=== PATIENT | female | born 1995 | race Caucasian/White ===

== ENCOUNTER 2017-10-29 06:00 | Inpatient (IN) ==
[2017-10-29] MEDS ORDERED: Naloxone 0.4 MG/ML INJ IVP PRN (06:32)
[2017-10-29] MEDS ORDERED: Metoclopramide 10 MG/2 ML VIAL IVP PRN (06:32)
[2017-10-29] MEDS ORDERED: Famotidine 20 MG/2 ML VIAL IVP PRN (06:32)
[2017-10-29] MEDS ORDERED: Ringers Solution, Lactated 1,000 ML IVC SCH (06:45)
--- NOTE | 2017-10-29 07:25 | OB/GYN History & Physical ---
Date of Encounter: 10/29/17 Time of Encounter: 07:22 Assessment and Plan (1) 40 weeks gestation of Current visit: Yes Status: Acute Admit for IOL. Plan for cytotec PO. Pt is undecided if she wants an epidural. Anticipate . (2) Gestational diabetes Current visit: Yes Status: Acute Qualifiers: Gestational diabetes mellitus control: diet-controlled Trimester: third trimester Qualified Code(s): O24.410 - Gestational diabetes mellitus in , diet controlled (3) Obesity affecting in third trimester Current visit: Yes Status: Acute (4) History of marijuana use Current visit: Yes Status: Acute History of Present Illness Chief complaint: IOL, GDM HPI: Ms. Mehta is a 22 year old female presenting at 40w1d for IOL due to GDM at 40 weeks gestation. She denies complaints today. Good FM. This is complicated by GDMA1, late care, history of marijuana use, and obesity. Blood type A positive Rubella immune Serologies negative GBS negative Past Med Surg Social Fam HX - Past Medical History Medical history: no medical history Psychiatric history: no psych history - Social History Smoking Status: Never smoker Smokeless Tobacco Status: No Alcohol use: none Drug use: marijuana - Family History Mother Hx Family Endocrine Disorder: Yes (Diabetic) Obstetrical History - Pregnancies : 1 Para: 0 Medications and Allergies Vit/Iron Fumarate/FA [ Tablet] 1 each PO DAILY 10/29/17 [ History] 3 Allergy/AdvReac Type Severity Reaction Status Date / Time No Known Allergies Allergy Verified 10/29/17 06:43 Review of System OB All systems PM: reviewed and no additional remarkable complaints except as stated Exam - Vital Signs Vital signs: Initial Vital Signs Temp Pulse Resp BP 98.2 F 102 18 138/80 10/29/17 06:55 10/29/17 06:55 10/29/17 06:55 10/29/17 06:55 - Constitutional Constitutional: well developed, well nourished, no acute distress, obese - HEENT HEENT: Mucus Membranes Moist - Lungs Respiratory exam: CTAB - Cardiovascular Cardiovascular exam: RRR - Abdomen Abdomen: Present: gravid, non tender - Extremities Extremities exam: normal inspection - Vulva Vulva: bilateral: normal - Cervix Dilation: 3 (in office) - Anus/Rectum Anus/Rectum: Present: normal perianal skin Results All other labs normal. - VTE Reasons for not Prescribing Prophylaxis: Treatment not Indicated - Low risk for VTE
[2017-10-29] MEDS: miSOPROStol 25 MCG TABLET PO PRN ×2 (07:57→12:46)
[2017-10-29 07:58] LABS: Amphetamine Screen,Urine Negative ng/mL (Cutoff=1000); Barbiturate Screen,Urine Negative ng/mL (Cutoff=200); Benzodiazepines Screen,Urine Negative ng/mL (Cutoff=200); Cannabinoid Screen,Urine Negative ng/mL (Cutoff = 50); Cocaine Screen,Urine Negative ng/mL (Cutoff= 300); Opiate Screen,Urine Negative ng/mL (Cutoff=300); Phencyclidine Screen,Urine Negative ng/mL (Cutoff=25)
[2017-10-29 07:59] LABS: Basophils # 0.1 K/mcL (0.0-0.2); Basophils % 0.4 %; Eosinophils # 0.1 K/mcL (0.0-0.6); Eosinophils % 0.7 %; Hematocrit 34.5 % (35.3-44.9); Hemoglobin 11.3 g/dL (11.5-15.4); Immature Granulocytes % 1.3 % (0-4); Lymphocytes # 1.6 K/mcL (0.6-4.6); Lymphocytes % 13.3 %; Mean Corpuscular HGB Conc 32.8 g/dL (31.6-35.5); Mean Corpuscular Hemoglobin 27.2 pg (28.0-33.3); Mean Corpuscular Volume 82.9 fL (83.0-100.0); Mean Platelet Volume 10.6 fL (9.4-12.4); Monocytes # 0.9 K/mcL (0.0-1.3); Monocytes % 7.7 %; Neutrophils # 9.3 K/mcL (1.6-8.9); Platelet Count 293 K/mcL (140-400); Red Blood Count 4.16 M/mcL (3.82-4.97); Red Cell Distribution Width 15.1 % (11.5-14.5); Segmented Neutrophils % 76.6 %
--- NOTE | 2017-10-29 13:08 | OB Labor Progress Note ---
Date of Encounter: 10/29/17 Time of Encounter: 13:02 Labor Progress Note - Subjective Subjective: Resting comfortably in bed; feeling occasional contraction - Vital Signs Vital Signs: VSS - Cervix Cervix: 2-3/80/-1 posterior soft - Heart Tones Heart Tones: 135 category I - [place]: irregular contractions - Interventions Interventions: Intracervical ricks catheter placed without difficulty; patient and fetus tolerated well. - Plan Plan: Continue routine labor management GBS negative Consider AROM and pitocin for labor augmentation Patient may have nubain/epidural upon request for pain control Anticipate vaginal delivery POC per consult with Dr Shore
[2017-10-29] MEDS: *HR* Nalbuphine 20 MG/ML AMPUL IVP PRN ×2 (13:47→18:13)
--- NOTE | 2017-10-29 16:52 | OB Labor Progress Note ---
Date of Encounter: 10/29/17 Time of Encounter: 16:30 Labor Progress Note - Subjective Subjective: Patient resting comfortably in bed - Vital Signs Vital Signs: VSS - Cervix Cervix: 4-5/80/-1 - Heart Tones Heart Tones: 130 category I - [place]: Contractions every 4-6 minutes - Interventions Interventions: AROM for large amount of clear fluid, iupc and fse. Patient and fetus tolerated well - Plan Plan: Continue routine labor management GBS negative pain is well controlled; may have nubain/epidural upon request Start pitocin and titrate for adequate labor Anticipate vaginal delivery POC per consult with Dr Shore.
[2017-10-29] MEDS ORDERED: Oxytocin 20 units/ LR 1000 mL 20 UNIT/1,000 ML BAG IVC SCH (17:00)
[2017-10-29] MEDS ORDERED: Epidural Premix (fent/bupiv) 110 ML EP ONE (19:29)
[2017-10-29] MEDS ORDERED: Epidural Premix (fent/bupiv) 110 ML EP SCH (19:30)
[2017-10-29] MEDS ORDERED: Ringers Solution, Lactated 1,000 ML ONE (20:34)
--- NOTE | 2017-10-29 21:01 | Anesthesia Evaluation PreOp ---
Date of Encounter: 10/29/17 Time of Encounter: 19:30 - Past History Planned Operation: cynthia Cardiac History: Denies any Significant Hx Pulmonary History: Denies Any Significant HX PATIENT REGISTRATION SPECIALIST History: Denies Any Significant HX Other Medical History: Denies Any Significant HX Anesthesia History: No Prior Anesthetic Complications : Yes Test: Positive Alcohol Use: none Drug use: none, marijuana Medications and Allergies Vit/Iron Fumarate/FA [ Tablet] 1 each PO DAILY 10/29/17 [ History] 3 Allergy/AdvReac Type Severity Reaction Status Date / Time No Known Allergies Allergy Verified 10/29/17 06:43 - Meds/Allergy Pre-op Review Medications Reviewed: Yes Allergies Reviewed: Yes Beta Blockers on Current Med List: No Anesthesia Results - Labs 10/29/17 07:35 Anesthesia Exam Height: 63.5 Weight: 106 NPO (# of Hours): mn Pain Scale: 8 - HEENT Pupil (Motor): Pupils equal Mallampati: II Teeth: Normal Oral Opening: Greater than 3 - PATIENT REGISTRATION SPECIALIST LOC: Oriented PATIENT REGISTRATION SPECIALIST Motor: Normal RUE, Normal LUE, Normal RLE, Normal LLE, Normal Face PATIENT REGISTRATION SPECIALIST Sensory: Normal: RUE, LUE, RLE, LLE, Face - Cardiac Rhythm: Regular Murmur: None JVD: No Carotid Bruit: No - Pulmonary Breath Sounds: bilateral Clear Respiratory Effort: Symmetrical Anesthesia Assess/Plan ASA Score: 2 Modified Annemarie Scale for Level of Consciousness: Cooperative, oriented, and tranquil Anesthetic Plan: Regional Autologous Blood: No Monitoring Plan: Standard Monitors
--- NOTE | 2017-10-29 21:03 | Anesthesia Procedures ---
Date of Encounter: 10/29/17 Time of Encounter: 19:30 Procedures: Anesthesia - Epidural/Spinal Patient ID/Chart reviewed: Yes Patient examined: Yes OB Eval: Gestational age: 40.1 OB Eval: : 1 OB Eval: Hx Para: 0 OB Eval: Dilated at (cm): 6 OB Eval: Contractions: Non-stressed pattern Consent Obtained: Yes Supplemental Oxygen: None/Room Air Site Prep: Aseptic Technique, Sterile prep and drape, Povidone-Iodine 1% Patient position: upright Amount of Local Anesthetic used: 3 Touhy Needle Gauge: 18 Touhy Needle Depth (cm): 6 Catheter Depth at Skin (cm): 9 Test Dose (1.5% Lido + Epi): Volume given (mls): 3 Test Dose Result: Negative Loading Dose Administered: Thru Catheter Infusion Rate (mls/hr): [address]: Tegaderm, Tape Interspace Used: L4-L5 Loss of Resistance (AKUA): Yes Blood: No CSF: No Paresthesia: No Vitals + FHT's: stable throughout see nursing notes
[2017-10-30] MEDS ORDERED: 0.9 % Sodium Chloride 1,000 ML ONE (00:47)
[2017-10-30] MEDS ORDERED: Ondansetron 4 MG/2 ML VIAL IVP PRN (02:13)
[2017-10-30] MEDS ORDERED: Epidural Premix (fent/bupiv) 110 ML EP ONE ×2 (02:22→07:35)
[2017-10-30] MEDS ORDERED: Ondansetron 4 MG/2 ML VIAL ONE (02:26)
[2017-10-30] MEDS ORDERED: ROPIVACAINE HCL/PF 0.5% 30 ML VIAL ONE (05:11)
--- NOTE | 2017-10-30 11:51 | OB/GYN Procedure Note ---
Delivery - Delivery Date: 10/30/17 Provider: Santiago Shore Intrapartum events: none Delivery induction: ricks, misoprostol Delivery augmentation: rupture of membranes, pitocin Delivery monitor: internal FHT, internal uterine Anesthesia: epidural Estimated Blood Loss: 200 - (s) A Delivery Date: 10/30/17 Delivery Time: 11:29 Presentation: vertex Position: OA Route of delivery: Gender: Male Viability: Viable Pounds: 6 Ounces: 13 at 1 minute: 2 at 5 mins: 8 Shoulder Dystocia: not encountered Specimens collected: cord blood Placenta: spontaneous - Repair Episiotomy: none Laceration Description: None - Complications Delivery complications: none - Disposition Mom disposition: stable in LDR disposition: taken to nursery - Comments Comments: Patient progressed to complete and on the perineum. She delivered a live male infant weighing 6 lbs. 13 oz. Anesthesia was epidural. Apgars were 2 and 8. Delivery was 1129. Estimated blood loss was 200 mL. Placenta delivered spontaneously intact.
[2017-10-30] MEDS ORDERED: Oxytocin 20 units/ LR 1000 mL 20 UNIT/1,000 ML BAG IVC SCH (14:11)
[2017-10-30] MEDS ORDERED: Measles/Mumps/Rubella Vacc 0.5 ML VIAL SQ PRN (14:11)
[2017-10-30] MEDS ORDERED: Ibuprofen 600 MG TABLET PO PRN (14:11)
[2017-10-30] MEDS ORDERED: Sennosides 8.6 MG TABLET PO PRN (14:11)
[2017-10-30] MEDS ORDERED: Acetaminophen 325 MG TABLET PO PRN (14:11)
[2017-10-31 07:56] VITALS: BP 122/71
[2017-10-31 08:26] LABS: Basophils % 0.3 %; Eosinophils # 0.2 K/mcL (0.0-0.6); Eosinophils % 1.3 %; Hematocrit 29.6 % (35.3-44.9); Lymphocytes # 3.2 K/mcL (0.6-4.6); Lymphocytes % 20.5 %; Mean Corpuscular HGB Conc 32.4 g/dL (31.6-35.5); Mean Corpuscular Hemoglobin 27.3 pg (28.0-33.3); Mean Corpuscular Volume 84.1 fL (83.0-100.0); Mean Platelet Volume 10.5 fL (9.4-12.4); Monocytes # 1.5 K/mcL (0.0-1.3); Monocytes % 9.8 %; Neutrophils # 10.5 K/mcL (1.6-8.9); Platelet Count 256 K/mcL (140-400); Red Blood Count 3.52 M/mcL (3.82-4.97); Red Cell Distribution Width 15.2 % (11.5-14.5); Segmented Neutrophils % 67.1 %
--- NOTE | 2017-10-31 08:40 | Discharge Summary ---
Date of Encounter: 10/31/17 Time of Encounter: 08:38 - Discharge Diagnosis (1) Vaginal delivery Priority: Primary Status: Acute Comments: Pt states feels well, pain well managed on po pain medication, tolerates diet, voids without difficulty. Desires discharge (2) 40 weeks gestation of Priority: Primary Status: Acute (3) Gestational diabetes Priority: Primary Status: Acute Qualifiers: Gestational diabetes mellitus control: diet-controlled Trimester: third trimester Qualified Code(s): O24.410 - Gestational diabetes mellitus in , diet controlled - Discharge Medications Prescriptions: Ibuprofen [Motrin] 600 mg PO Q6HR PRN #60 tablet PRN Reason: Cramping Docusate [Colace] 100 mg PO BID #60 capsule Home Medications: Vit/Iron Fumarate/FA [ Tablet] 1 each PO DAILY 10/29/17 [ History] Acetaminophen [Tylenol] 650 mg PO Q6HR PRN tablet 10/31/17 [Rx] Docusate [Colace] 100 mg PO BID #60 capsule 10/31/17 [Rx] Ibuprofen [Motrin] 600 mg PO Q6HR PRN #60 tablet 10/31/17 [Rx] Vit/FA 1 each PO DAILY tablet 10/31/17 [Rx] Allergies/Adverse Reactions: 3 Allergy/AdvReac Type Severity Reaction Status Date / Time No Known Allergies Allergy Verified 10/29/17 06:43 Data Procedures and tests throughout hospitalization: Laboratory Tests 10/29/17 10/29/17 10/31/17 07:35 07:35 04:08 WBC 12.1 H RBC 4.16 Hgb 11.3 L Hct 34.5 L MCV 82.9 L MCH 27.2 L MCHC 32.8 RDW 15.1 H Plt Count 293 MPV 10.6 Immature Gran % 1.3 Seg Neutrophils % 76.6 Lymphocytes % 13.3 Monocytes % 7.7 Eosinophils % 0.7 Basophils % 0.4 Neutrophils # 9.3 H Lymphocytes # 1.6 Monocytes # 0.9 Eosinophils # 0.1 Basophils # 0.1 POC Glucose 87 Urine Opiates Screen Negative Ur Barbiturates Screen Negative Ur Phencyclidine Scrn Negative Ur Amphetamines Screen Negative U Benzodiazepines Scrn Negative Urine Cocaine Screen Negative U Marijuana (THC) Screen Negative Labs on day of discharge: Labs from last 24 hours 10/31/17 04:08 POC Glucose 87 Date of admission: 10/29/17 06:29 Primary care physician: Nallely Tabor CNP Consults: 10/30/17 14:11 Consult to [employer] Pain[employer] [CONS] Routine Comment: Vaginal delivery, consult needed Discharging clinician: Obdulia Batres Anticipated date of discharge: 10/31/17 - Patient Status Disposition: Home, Self-Care Condition: Good Functional capacity at discharge: independent ambulation Overall status at discharge: patient is back to baseline - Discharge Instructions Instructions: Diabetes Mellitus Type 2 in Adults (DC) Follow Up With: Nallely Tabor CNP [Primary Care Provider] - - Diet and Activity Activity: resume usual activities as tolerated Diet: regular diet Hospital Course Reason for admission: active labor Delivery: Episiotomy: none Laceration: none Other procedures: none complications: none Discharge diagnosis: IUP at term delivered baby: male Hospital course: Delivery - Delivery Date: 10/30/17 Provider: Santiago Shore Intrapartum events: none Delivery induction: ricks, misoprostol Delivery augmentation: rupture of membranes, pitocin Delivery monitor: internal FHT, internal uterine Anesthesia: epidural Estimated Blood Loss: 200 - Infant (s) A Delivery Date: 10/30/17 Delivery Time: 11:29 Presentation: vertex Position: OA Route of delivery: Gender: Male Viability: Viable Pounds: 6 Ounces: 13 at 1 minute: 2 at 5 mins: 8 Shoulder Dystocia: not encountered Specimens collected: cord blood Placenta: spontaneous - Repair Episiotomy: none Laceration Description: None - Complications Delivery complications: none - Disposition Mom disposition: stable in PP and appropriate for discharge. Time Attestation: Total time spent providing and/or coordinating discharge services: Time Spent: Less than 30 minutes Exam - Constitutional Vitals: Temp Pulse Resp BP Pulse Ox 98.1 F 93 16 122/71 98 10/31/17 07:30 10/31/17 07:30 10/31/17 07:30 10/31/17 07:30 10/31/17 04:51 General appearance IM: A&O X 3 - Respiratory Respiratory exam: Present: CTAB - Cardiovascular Cardiovascular exam IM: Present: RRR - GI/Abdominal GI/Abdominal exam IM: normal bowel sounds, soft - Uterine Tone: Firm Uterus Position: At Umbilicus - Extremities Exam Extremities exam IM: Present: normal capillary refill, normal inspection - Neurological Exam Neurological exam: normal gait, oriented X3 - Psychiatric Additional comments: Reports good mood.
[2017-10-31 08:44] LABS: Hemoglobin 9.6 g/dL (11.5-15.4)
[2017-10-31] MEDS ORDERED: NON-FORMULARY MEDICATION 1 EACH EACH (Prenatal Vit/Iron Fumarate/Fa [Prenatal Tablet] 1 EA PO SCH (09:00)
[2017-10-31] MEDS ORDERED: Prenatal Vit/FA 1 EACH TABLET PO SCH (09:00)
== END 2017-10-31 16:25 | disposition home or self-care (01) | DRG 560 ==
LOC: 1NENULAB 06:29 → 1NENUOBS 10-30 13:50
PROVIDERS: ADMIT Obstetrics & Gynecology; ATTEND Obstetrics & Gynecology